=== PATIENT | female | born 1975 | race Caucasian/White ===

== ENCOUNTER 2023-10-06 20:18 | Emergency (ER) | payer MEDICAID ==
[~2023-10-06] VITALS: Ht 162.6 cm; Wt 77.3 kg
[2023-10-06 21:04] VITALS: BP 142/93; PULSE 101; RESP 18; TEMP 99.1; O2SAT 96
== END 2023-10-06 23:07 | disposition left against medical advice (07) ==
LOC: ER 20:19
DX: G43.909 Migraine, unspecified, not intractable, without status migrainosus (principal); Z53.21 Procedure and treatment not carried out due to patient leaving prior to being seen by health care provider

== ENCOUNTER 2023-10-07 05:22 | Emergency (ER) | payer MEDICAID ==
[~2023-10-07] VITALS: Ht 193 cm; Wt 77.3 kg
[2023-10-07 05:30] VITALS: TEMP 97.9
[2023-10-07] MEDS: dexamethasone 4mg tablet PO ONE (06:43)
[2023-10-07] MEDS: ketorolac tromethamine 15mg/ml inj. IM ONE (06:43)
[2023-10-07] MEDS: diphenhydrAMINE 25mg capsule PO ONE (06:43)
[2023-10-07 07:20] VITALS: BP 127/84; PULSE 94; RESP 12; O2SAT 99
== END 2023-10-07 07:23 | disposition home or self-care (01) ==
LOC: ER 05:22
DX: G43.809 Other migraine, not intractable, without status migrainosus (principal)
CPT/HCPCS: 96372; 99283; J1885; Q0163